=== PATIENT | female | born 1970 ===

== ENCOUNTER 2023-07-18 06:22 | Day surgery (SDC) | payer OTHER ==
[~2023-07-18] VITALS: Ht 165.1 cm; Wt 73.9 kg
[~2023-07-18 06:22] MED LIST: ATORVASTATIN CA20 MG PO; AVAPRO300 MG PO; GLUMETZA1000 MG PO; JARDIANCE10 MG PO; OZEMPIC1 MG/0.71; PEPCID PO
[2023-07-18] MEDS ORDERED: IBU800 MG PO (10:16)
[2023-07-18] MEDS ORDERED: NEURONTIN300 MG PO (10:16)
== END 2023-07-18 11:35 | disposition home or self-care (01) ==
LOC: CIR.AMB 06:22
PROVIDERS: ATTEND Obstetrics & Gynecology Gynecology
DX: N80.30 Endometriosis of pelvic peritoneum, unspecified (principal); N80.00 Endometriosis of the uterus, unspecified; D25.1 Intramural leiomyoma of uterus; D25.2 Subserosal leiomyoma of uterus; R10.2 Pelvic and perineal pain; Z20.822 Contact with and (suspected) exposure to COVID-19; E11.9 Type 2 diabetes mellitus without complications; E78.5 Hyperlipidemia, unspecified; I10 Essential (primary) hypertension